=== PATIENT | female | born 1960 | race African-American/Black ===

== ENCOUNTER 2016-12-17 16:17 | Inpatient (IN) | payer OTHER ==
[~2016-12-17] VITALS: Ht 165.1 cm; Wt 74.8 kg
[2016-12-17] MEDS ORDERED: NALOXONE HCL 1 MG/ML 2 ML SYG ONE (16:24)
[2016-12-17] MEDS ORDERED: SODIUM CHLORIDE 0.9% 1,000 ML IV ONE (16:30)
[2016-12-17 16:32] LABS: GLUCOSE,POINT OF CARE 107 MG/DL (70-110)
[2016-12-17 16:56] LABS: BASOPHILS % (AUTO) 0.4 % (0.0-2.0); EOSINOPHILS % (AUTO) 1.9 % (1.0-6.0); HEMATOCRIT 37.3 % (36-46); HEMOGLOBIN 12.4 g/dL (12.0-16.0); LYMPHOCYTES # (AUTO) 2.8 K/uL (1.0-4.8); LYMPHOCYTES % (AUTO) 54.7 % (22.0-44.0); MEAN CORPUSCULAR HEMOGLOBIN 28.8 pg (26.0-34.0); MEAN CORPUSCULAR HGB CONC 33.1 G/dL (31.0-37.0); MEAN CORPUSCULAR VOLUME 87 fL (80-100); MONOCYTES # (AUTO) 0.5 K/uL (0.1-1.0); NEUTROPHILS # (AUTO) 1.7 K/uL (1.8-7.7); PLATELET COUNT (AUTO) 160 K/uL (150-450); RED BLOOD CELL COUNT(AUTO) 4.28 MIL/uL (4.00-5.20); RED CELL DISTRIBUTION WIDTH 13.3 % (11.5-14.5); WHITE BLOOD COUNT (AUTO) 5.1 K/uL (4.5-11.0)
[2016-12-17 17:02] LABS: ANION GAP 5 mmol/L (8-16); CALCIUM, TOTAL 8.3 mg/dL (8.8-10.5); CARBON DIOXIDE 27 mmol/L (22-29); CHLORIDE 107 mmol/L (98-107); CREATININE 0.79 mg/dL (0.60-1.30); GLOMERULAR FILTR. RATE CALC > 60 mL/min (>60); POTASSIUM 3.4 mmol/L (3.5-5.1); SODIUM SERUM 139 mmol/L (136-145); UREA NITROGEN, BLOOD 7 mg/dL (7-18)
[2016-12-17 17:15] LABS: APPEARANCE,URINE CLEAR (CLEAR); GLUCOSE, URINE (UA) NEGATIVE (NEGATIVE); KETONES,URINE NEGATIVE (NEGATIVE); LEUKOCYTE ESTERASE ,URINE TRACE (NEGATIVE); OCCULT BLOOD,URINE NEGATIVE (NEGATIVE); PH,URINE 6.5 (5.0-8.0); PROTEIN,URINE NEGATIVE (NEGATIVE)
[2016-12-17 17:26] LABS: ALANINE AMINOTRANSFERASE 20 U/L (12-78); ALBUMIN 2.9 g/dL (3.4-5.0); ASPARTATE AMINOTRANSFERASE 26 U/L (15-37); BILIRUBIN,TOTAL 0.3 mg/dL (0.1-1.0); CREATINE KINASE MB 1.7 ng/mL (0-5); CREATINE KINASE, TOTAL 81 U/L (26-192); RBC,URINE None Seen /HPF (0-2); TOTAL PROTEIN, SERUM 7.4 g/dL (6.4-8.2); WBC,URINE 0-2 /HPF (0-5)
[2016-12-17 17:27] LABS: SALICYLATE < 2.8 mg/dL (2.8-20.0)
[2016-12-17 17:28] LABS: ACETAMINOPHEN < 2 mcg/mL (10-30)
[2016-12-17] MEDS ORDERED: ONDANSETRON HCL 4 MG/2 ML VIAL IVP PRN ×2 (19:30)
[2016-12-17] MEDS ORDERED: IPRATROPIUM BROMIDE 0.5 MG/2.5 ML NEB SOLUTION NEB PRN (19:30)
[2016-12-17] MEDS ORDERED: ALBUTEROL SULFATE 2.5 MG/0.5 ML NEB SOLUTION NEB PRN (19:30)
[2016-12-17] MEDS ORDERED: ACETAMINOPHEN 325 MG TABLET PO PRN (19:30)
[2016-12-17] MEDS ORDERED: BISACODYL 10 MG RECTAL RECTAL SUPPOSITORY PR PRN (19:30)
[2016-12-17] MEDS ORDERED: 0.9% SODIUM CHLORIDE 10 ML SYRINGE IVP PRN (19:30)
[2016-12-17] MEDS ORDERED: MAGNESIUM HYDROXIDE SUSPENSION 30 ML UDCUP PO PRN (19:30)
[2016-12-17] MEDS: SODIUM CHLORIDE 0.9% 1,000 ML IV SCH (20:11)
[2016-12-17] MEDS: POTASSIUM CHL 10 MEQ/WATER 50 ML IV SCH ×3 (20:12→22:26)
[2016-12-17] MEDS: DOCUSATE SODIUM 100 MG CAPSULE PO SCH (21:00)
[2016-12-17 21:30] VITALS: BP 155/79
[2016-12-17] MEDS: HEPARIN SODIUM,PORCINE 5,000 UNITS/ML VIAL SQ SCH (21:36)
[2016-12-18 00:03] VITALS: BP 148/76
[2016-12-18] MEDS: POTASSIUM CHL 10 MEQ/WATER 50 ML IV SCH (01:38)
[2016-12-18 04:52] VITALS: BP 139/83
[2016-12-18 07:51] VITALS: BP 151/77
[2016-12-18] MEDS ORDERED: PANTOPRAZOLE SODIUM 40 MG DR TABLET PO SCH (09:00)
[2016-12-18] MEDS: DOCUSATE SODIUM 100 MG CAPSULE PO SCH (09:00)
[2016-12-18] MEDS: SODIUM CHLORIDE 0.9% 1,000 ML IV SCH (09:49)
[2016-12-18] MEDS: HEPARIN SODIUM,PORCINE 5,000 UNITS/ML VIAL SQ SCH (09:49)
[2016-12-18 11:27] VITALS: BP 124/72
[2016-12-18 19:46] VITALS: BP 129/74
== END 2016-12-18 20:10 | disposition home or self-care (01) | DRG 812 ==
LOC: EMS 16:20 → 5S 19:00 → EDBD 19:00
PROVIDERS: ADMIT Internal Medicine; ATTEND Internal Medicine
DX: T42.4X1A Poisoning by benzodiazepines, accidental (unintentional), initial encounter (principal); G92 Toxic encephalopathy; E87.6 Hypokalemia
CPT/HCPCS: 82948; 82962; 92610; 93005; 96360; 99291; G0480; G0481; J1644; J2310; J3480; J7030